=== PATIENT | female | born 1980 | race African-American/Black ===

== ENCOUNTER 2016-11-20 05:03 | Emergency (ER) | payer OTHER ==
[2016-11-20 05:13] VITALS: BP 114/69; PULSE 65; TEMP 97.7; BMI 28.0
--- NOTE | 2016-11-20 05:45 | PDOC ---
History of Present Illness - General History Source: Patient Exam Limitations: No Limitations - History of Present Illness Initial Comments: 11/20/16 05:57 The patient is a 35 year old female, with no significant past medical history, who presents to the emergency department complaining of severe menstrual cramps that began at approximately 03:30. She states she woke up to use the bathroom when her cramps began. The patient reports taking 500 mg of motrin and utilizing a heating pad with no relief. The patient describes her cramps as severe and constant. She reports her cramps radiate into her back. The patient denies any associated nausea or vomiting. The patient denies any fever, chills, cough, headache, lightheadedness, or dizziness. The patient denies any dysuria, frequency, or urgency. Allergies: None reported. Past Surgical History: None reported. Social History: Current everyday smoker(3 cigarettes per day). Denies alcohol or drug use. <Osmin Cano - Last Filed: 11/20/16 05:57> - General History Source: Patient <Olivier Gupta - Last Filed: 11/20/16 06:31> - General Chief Complaint: Pain Stated Complaint: ABD PAIN Time Seen by Provider: 11/20/16 05:33 Past History <Osmin Cano - Last Filed: 11/20/16 05:57> - Past Medical History Thyroid Disease: No - Psycho/Social/Smoking Cessation Hx Anxiety: No Suicidal Ideation: No Smoking History: Current every day smoker Have you smoked in the past 12 months: No Number of Cigarettes Smoked Daily: 3 Information on smoking cessation initiated: No Hx Alcohol Use: No Drug/Substance Use Hx: No Substance Use Type: None <Olivier Gupta - Last Filed: 11/20/16 06:31> - Past Medical History Allergies/Adverse Reactions: Allergies Allergy/AdvReac Type Severity Reaction Status Date / Time No Known Allergies Allergy Verified 11/20/16 05:11 Home Medications: Ambulatory Orders Dicyclomine HCl [Bentyl] 20 mg PO Q6H #30 tablet 11/20/16 Review of Systems - Review of Systems Able to Perform ROS?: Yes Comments:: 11/20/16 05:57 CONSTITUTIONAL: Absent: fever, no chills, no fatigue EYES: Absent: visual changes ENT: Absent: ear pain, no sore throat CARDIOVASCULAR: Absent: chest pain, no palpitations RESPIRATORY: Absent: cough, no SOB GASTROINTESTINAL: Present: +abdominal cramping radiating into back Absent: abdominal distension, nausea, vomiting, diarrhea, constipation, melena, hematochezia GENITOURINARY: Absent: dysuria, frequency, urgency, hesitancy, hematuria, flank pain, genital pain MUSCULOSKELETAL: Absent: no arthralgia, no myalgia SKIN: Absent: rash NEURO: Absent: headache <CanoOsmin - Last Filed: 11/20/16 05:57> *Physical Exam - Vital Signs Last Vital Signs Temp Pulse Resp BP Pulse Ox 97.7 F 65 14 114/69 100 11/20/16 05:11 11/20/16 05:11 11/20/16 05:11 11/20/16 05:11 11/20/16 05:11 - Physical Exam Comments: 11/20/16 05:59 GENERAL: Well-appearing, well-nourished. Mild distress. HEENT: Normocephalic, atraumatic. PERRL, EOM intact. CARDIOVASCULAR: Normal S1, S2. Regular rate and rhythm. PULMONARY: Clear to auscultation bilaterally. ABDOMINAL: Soft. Non-tender. Non-distended. No rebound or guarding. No organomegaly. Normoactive bowel sounds. EXTREMITIES: Normal ROM in all four extremities. No gross deformities. SKIN: Warm, dry. No rash NEUROLOGICAL: No focal neurological deficits. <Osmin Cano - Last Filed: 11/20/16 05:57> - Vital Signs Last Vital Signs Temp Pulse Resp BP Pulse Ox 97.7 F 65 14 114/69 100 11/20/16 05:11 11/20/16 05:11 11/20/16 05:11 11/20/16 05:11 11/20/16 05:11 <Olivier Gupta - Last Filed: 11/20/16 06:31> Medical Decision Making - Medical Decision Making 11/20/16 06:31 Dr. Gupta: The scribe's documentation has been prepared under my direction and personally reviewed by me in its entirery. I confirm that the note above accurately reflects all work, treatment, procedures, and medical decision making performed by me. <Olivier Gupta - Last Filed: 11/20/16 06:31> *DC/Admit/Observation/Transfer - Attestations Scribe Attestion: 11/20/16 06:00 Documentation prepared by Osmin Cano, acting as certified medical coder for Olivier Gupta DO. <Osmin Cano - Last Filed: 11/20/16 05:57> - Discharge Dispostion Admit: No <Olivier Gupta - Last Filed: 11/20/16 06:31> Diagnosis at time of Disposition: Menstrual cramps - Discharge Dispostion Disposition: HOME Condition at time of disposition: Stable - Prescriptions Prescriptions: Dicyclomine HCl [Bentyl] 20 mg PO Q6H #30 tablet - Referrals Referrals: Je Sahu MD [Staff Physician] - - Patient Instructions Printed Discharge Instructions: DI for Dysmenorrhea
[2016-11-20] MEDS ORDERED: DICYCLOMINE HCL 10 MG CAPSULE PO ONE (05:46)
[2016-11-20] MEDS ORDERED: DICYCLOMINE HCL 10 MG CAPSULE ONE (05:49)
[2016-11-20 06:21] LABS: URINE APPEARANCE CLEAR; URINE BILIRUBIN NEGATIVE (NEGATIVE); URINE COLOR LTYELLOW; URINE GLUCOSE (UA) NEGATIVE (NEGATIVE); URINE KETONE NEGATIVE (NEGATIVE); URINE NITRITE NEGATIVE (NEGATIVE); URINE PROTEIN NEGATIVE (NEGATIVE); URINE UROBILINOGEN 2.0 E.U/dl E.U./dl (0.2-1.0)
[2016-11-20 06:41] LABS: URINE BLOOD 1+ (NEGATIVE); URINE LEUK ESTERASE TRACE (NEGATIVE)
[2016-11-20 06:42] LABS: URINE MUCUS RARE; URINE RBC 111 /hpf (0-3); URINE WBC <1 /hpf (3-5)
== END 2016-11-20 06:57 | disposition home or self-care (01) ==
LOC: JER 05:03
DX: N94.6 Dysmenorrhea, unspecified (principal)
CPT/HCPCS: 81003; 81015; 84703; 87086; 99282-25

== ENCOUNTER 2018-04-01 09:32 | Emergency (ER) | payer OTHER ==
[2018-04-01 09:42] VITALS: BP 125/65; PULSE 89; TEMP 98.3; BMI 33.2
[2018-04-01] MEDS ORDERED: KETOROLAC TROMETHAMINE 60 MG/2 ML VIAL IM ONE (10:29)
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
[2018-04-01] MEDS ORDERED: KETOROLAC TROMETHAMINE 60 MG/2 ML VIAL ONE (10:54)
== END 2018-04-01 12:11 | disposition home or self-care (01) ==
LOC: JERFT 09:32
PROC: 3E0233Z Introduction of Anti-inflammatory into Muscle, Percutaneous Approach (ICD-10-PCS; principal; 2018-04-01)
DX: S16.1XXD Strain of muscle, fascia and tendon at neck level, subsequent encounter (principal); S39.012D Strain of muscle, fascia and tendon of lower back, subsequent encounter; V49.59XD Passenger injured in collision with other motor vehicles in traffic accident, subsequent encounter
CPT/HCPCS: 72050-TC-FY; 72100-TC-FY; 84703; 99281-25

== ENCOUNTER 2018-11-14 13:35 | Emergency (ER) | payer OTHER ==
[2018-11-14 13:42] VITALS: BMI 31.1
--- NOTE | 2018-11-14 13:51 | PDOC ---
History of Present Illness - General Chief Complaint: Pain, Acute Stated Complaint: ABD PAIN Time Seen by Provider: 11/14/18 13:51 - History of Present Illness Initial Comments: 37 year female [id number] presenting with vaginal bleeding and lower abdominal pains concerning for "heavier than normal menstrual pains". Patient states that her LMP was 10/15/18 and she has been menstruating earlier than expected for the past 4 days with clot passage, lower abdominal pain, and generally feeling uncomfortable. Denies that she may be but does admit she is sexually active and has not had any reproductive organ altering procedure. Denies any fevers, chills, discharge, nausea, vomiting, or other symptoms. 11/14/18 16:13 Past History - Past Medical History Allergies/Adverse Reactions: Allergies Allergy/AdvReac Type Severity Reaction Status Date / Time No Known Allergies Allergy Verified 11/14/18 13:39 Home Medications: Ambulatory Orders Ibuprofen 800 mg PO TID PRN #30 tablet 03/29/18 Diclofenac Sodium [Diclo Gel] 1 each TP BID PRN 7 Days #1 kit 04/01/18 Methocarbamol [Robaxin-750] 750 mg PO TID 7 Days #20 tablet 04/01/18 Oxycodone HCl/Acetaminophen [Percocet 5-325 mg Tablet] 1 tab PO Q4H PRN 3 Days # 5 tablet NS MDD 12 04/01/18 COPD: No DVT: No Thyroid Disease: No - Suicide/Smoking/Psychosocial Hx Smoking History: Current some day smoker Have you smoked in the past 12 months: No Number of Cigarettes Smoked Daily: 1 Information on smoking cessation initiated: No 'Breaking Loose' booklet given: 03/29/18 Hx Alcohol Use: No Drug/Substance Use Hx: No Substance Use Type: None Review of Systems - Review of Systems Constitutional: No: Chills, Diaphoresis, Fever, Loss of Appetite HEENTM: No: Eye Pain, Blurred Vision, Tearing Respiratory: No: Cough, Orthopnea, Shortness of Breath Cardiac (ROS): No: Chest Pain, Edema, Irregular Heart Rate ABD/GI: No: Diarrhea, Nausea, Vomiting : No: Burning, Dysuria, Discharge Musculoskeletal: No: Back Pain, Joint Pain, Joint Swelling Integumentary: No: Bruising, Lesions, Lumps, Pallor Neurological: No: Headache, Numbness, Paresthesia Psychiatric: No: Anxiety, Depression Endocrine: No: Flushing, Intolerance to Cold Hematologic/Lymphatic: No: Anemia, Blood Clots, Easy Bleeding *Physical Exam - Vital Signs Last Vital Signs Temp Pulse Resp BP Pulse Ox 97.9 F 63 20 115/78 100 11/14/18 13:39 11/14/18 13:39 11/14/18 13:39 11/14/18 13:39 11/14/18 13:39 - Physical Exam General Appearance: Yes: Nourished, Appropriately Dressed, Apparent Distress, Mild Distress HEENT: positive: EOMI, XOCHITL, Normal ENT Inspection, Normal Voice Neck: positive: Trachea midline, Normal Thyroid, Supple. negative: Tender, Rigid Respiratory/Chest: positive: Lungs Clear, Normal Breath Sounds. negative: Chest Tender, Respiratory Distress, Accessory Muscle Use Cardiovascular: positive: Regular Rhythm, Regular Rate Female Pelvic Exam: positive: cervical os closed, normal adnexa (mild left adnexal tenderness), vaginal bleeding (bleeding with clots). negative: normal external exam, discharge Gastrointestinal/Abdominal: positive: Normal Bowel Sounds, Tender (bilateral lower abdominal tenderness), Flat, Soft Lymphatic: negative: Adenopathy, Tenderness Musculoskeletal: positive: Normal Inspection. negative: Decreased Range of Motion Extremity: positive: Normal Capillary Refill, Normal Inspection, Normal Range of Motion. negative: Tender Integumentary: positive: Normal Color, Dry, Warm Neurologic: positive: Fully Oriented, Alert, Normal Mood/Affect, Normal Response , Motor Strength 5/5 Moderate Sedation - Procedure Monitoring Vital Signs: Procedure Monitoring Vital Signs Temperature 97.9 F 11/14/18 13:39 Pulse Rate 63 11/14/18 13:39 Respiratory Rate 20 11/14/18 13:39 Blood Pressure 115/78 11/14/18 13:39 O2 Sat by Pulse Oximetry (%) 100 11/14/18 13:39 Medical Decision Making - Medical Decision Making 37 year old with vaginal bleeding and lower abdominal cramping with pelvic only evidencing mild left adnexal tenderness and dried vaginal blood/ clots. Patient improved drastically with toradol. UA negative, HCG negative and pelvic ultrasound showing a small left ovarian cyst. Will DC with return precautions and follow up instructions. 11/14/18 17:23 *DC/Admit/Observation/Transfer Diagnosis at time of Disposition: Vaginal bleeding, Left ovarian cyst - Discharge Dispostion Disposition: HOME Condition at time of disposition: Improved Decision to Admit order: No - Referrals Referrals: Trey Haile MD [Primary Care Provider] - - Patient Instructions Printed Discharge Instructions: DI for Ovarian Cyst Additional Instructions: Please use Tylenol and ibuprofen for your pain at home. The US only showed a small left ovarian cyst which is a normal finding in young females. Your vaginal bleeding is likely due to a heavier than usual period. Please [facility] if you have any further questions. Please return to the Ed if you have new or worsening symptoms. - Post Discharge Activity
--- NOTE | 2018-11-14 14:46 | PDOC ---
Attending Attestation - Resident Resident Name: ToriKaitybarronsolomon - ED Attending Attestation I have performed the following: I have examined & evaluated the patient, The case was reviewed & discussed with the resident, I agree w/resident's findings & plan, Exceptions are as noted - HPI HPI: 37 yo F history menorrhagia presents with heavy cramping. She states she typically has heavy periods, but no known history of fibroids. 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 She states the pain was much worse than prior periods, so she presented for evaluation. Currently pain free. - Physicial Exam PE: GENERAL: Awake, alert, and fully oriented, in no acute distress. Obese. HEAD: No signs of trauma EYES: PERRLA, EOMI, sclera anicteric, conjunctiva clear ENT: Auricles normal inspection, hearing grossly normal, nares patent, oropharynx clear without exudates. Moist mucosa NECK: Normal ROM, supple, no lymphadenopathy, JVD, or masses LUNGS: Breath sounds equal, clear to auscultation bilaterally. No wheezes, and no crackles HEART: Regular rate and rhythm, normal S1 and S2, no murmurs, rubs or gallops ABDOMEN: Soft, nontender, normoactive bowel sounds. No guarding, no rebound. No masses EXTREMITIES: Normal range of motion, no edema. No clubbing or cyanosis. No cords, erythema, or tenderness NEUROLOGICAL: Cranial nerves II through XII grossly intact. Normal speech, normal gait. Motor and sensation intact SKIN: Warm, Dry, normal turgor, no rashes or lesions noted. - Medical Decision Making Pt with history menorrhagia, presenting with pelvic cramping. Will obtain UA/UCG , sono.
[2018-11-14 15:26] LABS: HCG,QUALITATIVE URINE Negative
[2018-11-14 15:45] LABS: URINE APPEARANCE SLCLOUDY; URINE BILIRUBIN NEGATIVE (<2.0 mg/dL); URINE COLOR YELLOW; URINE GLUCOSE (UA) NEGATIVE (NEGATIVE); URINE KETONE NEGATIVE (NEGATIVE); URINE LEUK ESTERASE NEGATIVE (NEGATIVE); URINE NITRITE NEGATIVE (NEGATIVE); URINE PROTEIN 1+ (NEGATIVE)
[2018-11-14 15:49] LABS: EPI CELLS RARE /HPF (FEW); URINE MUCUS FEW
[2018-11-14] MEDS ORDERED: KETOROLAC TROMETHAMINE 30 MG/1 ML VIAL IM ONE (16:04)
[2018-11-14] MEDS ORDERED: KETOROLAC TROMETHAMINE 30 MG/1 ML VIAL ONE (16:24)
[2018-11-14 17:37] VITALS: BP 100/64; PULSE 74; TEMP 99.2
== END 2018-11-14 17:37 | disposition home or self-care (01) ==
LOC: JER 13:35
PROC: 3E0233Z Introduction of Anti-inflammatory into Muscle, Percutaneous Approach (ICD-10-PCS; principal; 2018-11-14)
DX: N92.0 Excessive and frequent menstruation with regular cycle (principal); N83.202 Unspecified ovarian cyst, left side
CPT/HCPCS: 76830-TC; 81003; 81015; 84703; 96372; 99283-25

== ENCOUNTER 2021-06-30 07:31 | Emergency (ER) | payer OTHER ==
[2021-06-30 07:49] VITALS: BP 115/43; PULSE 67; TEMP 98.3; BMI 34.0
== END 2021-06-30 08:44 | disposition home or self-care (01) ==
LOC: JER 07:31
DX: R07.9 Chest pain, unspecified (principal)
CPT/HCPCS: 93005; 93010; 99283-25

== ENCOUNTER 2022-02-26 17:48 | Emergency (ER) | payer OTHER ==
[2022-02-26 18:11] VITALS: BP 118/60; PULSE 68; TEMP 98.6; BMI 30.7
[2022-02-26] MEDS ORDERED: CYCLOBENZAPRINE HCL 10 MG TABLET (FP) PO ONE (20:57)
[2022-02-26] MEDS ORDERED: LIDOCAINE 5% TOPICAL PATCH TP ONE (20:57)
[2022-02-26] MEDS ORDERED: KETOROLAC TROMETHAMINE 30 MG/1 ML VIAL IM ONE (20:57)
[2022-02-26] MEDS ORDERED: KETOROLAC TROMETHAMINE 30 MG/1 ML VIAL ONE (20:59)
[2022-02-26] MEDS ORDERED: LIDOCAINE 5% TOPICAL PATCH ONE (20:59)
[2022-02-26] MEDS ORDERED: CYCLOBENZAPRINE HCL 10 MG TABLET (FP) ONE (20:59)
== END 2022-02-26 22:28 | disposition home or self-care (01) ==
LOC: JERFT 17:48
PROC: 3E0233Z Introduction of Anti-inflammatory into Muscle, Percutaneous Approach (ICD-10-PCS; principal; 2022-02-26)
DX: M54.2 Cervicalgia (principal); M25.562 Pain in left knee; V43.52XA Car driver injured in collision with other type car in traffic accident, initial encounter
CPT/HCPCS: 72040-TC; 73060-TC-LT-FY; 73562-TC-LT-FY; 99285-25

== ENCOUNTER 2023-11-27 10:34 | Emergency (ER) | payer OTHER ==
[2023-11-27 10:44] VITALS: BMI 36.9
[2023-11-27 11:15] VITALS: TEMP 98.2
[2023-11-27 14:05] VITALS: BP 109/62; PULSE 81; RESP 20
== END 2023-11-27 14:06 | disposition home or self-care (01) ==
LOC: JER 10:34
DX: O99.513 Diseases of the respiratory system complicating pregnancy, third trimester (principal); R06.02 Shortness of breath; Z3A.31 31 weeks gestation of pregnancy
CPT/HCPCS: 99283-25

== ENCOUNTER 2024-01-19 09:20 | Inpatient (IN) | payer OTHER ==
[2024-01-19] MEDS: ELECTROLYTE-148 SOLN 1,000 ML IV SCH (10:15)
[2024-01-19] MEDS ORDERED: OXYTOCIN 30 UNITS in 0.9% NS 30 UNIT/500 ML INFUS.BAG IVPB ONE (10:51)
[2024-01-19] MEDS: OXYTOCIN 30 UNITS in 0.9% NS 30 UNIT/500 ML INFUS.BAG IVPB SCH (11:00)
[2024-01-19 11:07] VITALS: BMI 38.5
[2024-01-19 12:37] LABS: BASO % 0.1 % (0-2.0); EOS % 1.9 % (0-4.5); HEMATOCRIT 33.3 % (32.4-45.2); HEMOGLOBIN 10.7 GM/dL (10.7-15.3); LYMPH % 15.7 % (8-40); MCH 24.8 pg (25.7-33.7); MCHC 32.3 g/dl (32.0-36.0); MEAN CELL VOLUME 76.6 fl (80-96); MEAN PLT VOLUME 10.5 fl (7.5-11.1); MONO % 7.5 % (3.8-10.2); NEUT % 74.8 % (42.8-82.8); PLATELET COUNT 77 10^3/uL (134-434); RBC 4.34 M/mm3 (3.60-5.2); RDW 12.8 % (11.6-15.6); WHITE BLOOD COUNT 7.4 K/mm3 (4.0-10.0)
[2024-01-19 14:51] LABS: ANISOCYTOSIS 0; MACROCYTOSIS 0
[2024-01-19] MEDS ORDERED: BUTORPHANOL TARTRATE 2 MG/ML VIAL ONE (14:57)
[2024-01-19] MEDS: BUTORPHANOL TARTRATE 2 MG/ML VIAL IVPB ONE (15:00)
[2024-01-19] MEDS: PROMETHAZINE HCL 25 MG/1 ML VIAL IVPB PRN (15:00)
[2024-01-19] MEDS ORDERED: OXYTOCIN 20 UNITS in 0.9% NS 20 UNIT/1,000 ML INFUS.BAG IV ONE (17:10)
[2024-01-19] MEDS: OXYTOCIN 20 UNITS in 0.9% NS 20 UNIT/1,000 ML INFUS.BAG IV SCH (17:20)
[2024-01-19] MEDS: METHYLERGONOVINE MALEATE 0.2 MG/1 ML AMP IM PRN (17:24)
[2024-01-19] MEDS ORDERED: BISACODYL 10 MG SUPP.RECT RC PRN (18:18)
[2024-01-19] MEDS ORDERED: BENZOCAINE 28 GM HEMORRHOIDAL OINTMENT TP PRN (18:18)
[2024-01-19] MEDS ORDERED: IBUPROFEN 600 MG TABLET (FP) PO ONE (18:56)
[2024-01-19] MEDS: IBUPROFEN 600 MG TABLET (FP) PO PRN (19:00)
[2024-01-20] MEDS: oxyCODONE HCL 5 MG TABLET PO PRN ×3 (00:50→20:05)
[2024-01-20 06:44] LABS: BASO % 0.2 % (0-2.0); EOS % 1.1 % (0-4.5); HEMATOCRIT 29.6 % (32.4-45.2); HEMOGLOBIN 9.6 GM/dL (10.7-15.3); LYMPH % 13.6 % (8-40); MCHC 32.3 g/dl (32.0-36.0); MEAN CELL VOLUME 77.5 fl (80-96); MEAN PLT VOLUME 10.8 fl (7.5-11.1); MONO % 7.1 % (3.8-10.2); PLATELET COUNT 74 10^3/uL (134-434); RBC 3.82 M/mm3 (3.60-5.2); WHITE BLOOD COUNT 11.4 K/mm3 (4.0-10.0)
[2024-01-20 09:44] VITALS: RESP 18
[2024-01-20] MEDS: WITCH HAZEL 50% (TUCKS) 40 PAD/JAR PAD TP PRN (10:15)
[2024-01-20] MEDS: BENZOCAINE 20% 57 GM BOTTLE TP PRN (10:15)
[2024-01-20] MEDS ORDERED: SENNOSIDES/DOCUSATE COMBO (SENNA PLUS) TABLET (UD) PO PRN (22:00)
[2024-01-21] MEDS: ACETAMINOPHEN 325 MG TABLET (FP) PO PRN (09:41)
[2024-01-21 10:15] VITALS: BP 122/68; PULSE 82; TEMP 99.2
== END 2024-01-21 14:20 | disposition home or self-care (01) | DRG 560 ==
LOC: JLDR 09:20 → J3W 23:47
PROVIDERS: ADMIT Specialist; ATTEND Specialist
PROC: 10E0XZZ Delivery of Products of Conception, External Approach (ICD-10-PCS; principal; 2024-01-19)
PROC: 0W8NXZZ Division of Female Perineum, External Approach (ICD-10-PCS; 2024-01-19)
PROC: 0KQM0ZZ Repair Perineum Muscle, Open Approach (ICD-10-PCS; 2024-01-19)
DX: O41.03X0 Oligohydramnios, third trimester, not applicable or unspecified (principal); O99.12 Other diseases of the blood and blood-forming organs and certain disorders involving the immune mechanism complicating childbirth; D69.6 Thrombocytopenia, unspecified; O70.1 Second degree perineal laceration during delivery; Z3A.38 38 weeks gestation of pregnancy; Z37.0 Single live birth
CPT/HCPCS: 36415; 80053; 85025; 85027; 85610; 85730; 86780; 86850; 86900; 86901; 87389